=== PATIENT | female | born 1985 | race Caucasian/White ===

== ENCOUNTER 2018-08-07 10:42 | Day surgery (SDC) | payer OTHER ==
--- NOTE | 2018-08-02 13:41 | HP ---
Admitting History and Physical - Primary Care Physician PCP: Antonio Davis - Admission Chief Complaint: left breast cancer DCIS History of Present Illness: 33 year old premenapausal female with strong family H/O breast cancer Mammogram showed calcifications left outer aspect of breast birad 4.. US showed benign cystic changes bilaterally. Stereotactic core bx left breast showed 07/2018 DCIS ER/CT -.Breast MRI 07/2018 right breast negative. localized left breast cancer. History Source: Patient Limitations to Obtaining History: No Limitations - Past Medical History Additional Past Medical History: benign left breast FNA - Smoking History Smoking history: Never smoked Have you smoked in the past 12 months: No - Alcohol/Substance Use Hx Alcohol Use: Yes (social) Home Medications - Allergies Allergies/Adverse Reactions: Allergies Allergy/AdvReac Type Severity Reaction Status Date / Time minocycline Allergy Verified 07/30/18 11:51 Family Disease History - Family Disease History Family Disease History: CA: Grandparent (Mat GM bladder and lung ca alive 80's// mat GF prostate ca 50 mets and CRC70's ), Mother (bilateral breast ca 54 alive and her twin sister breast ca 53) Other Family History: mat aunt breast ca 53 mothers twin. mat [place] breast ca 55 Physical Examination Constitutional: Yes: Well Nourished Breast(s): Yes: Other (moderately ptotic C cup breasts no pslpsble masses or adenopathy in either breast post bx changes left breast) Problem List - Problems (1) Ductal carcinoma in situ (DCIS) of left breast Code(s): D05.12 - INTRADUCTAL CARCINOMA IN SITU OF LEFT BREAST Assessment/Plan Left breast wide excision mammogram localization
[2018-08-03 09:53] VITALS: BMI 25.2
[2018-08-07] MEDS ORDERED: BUPIVACAINE HCL/PF 2.5 MG/ML - 30 ML VIAL IJ ONE (12:40)
[2018-08-07] MEDS ORDERED: MIDAZOLAM HCL 2 MG/2 ML SINGLE DOSE VIAL ONE (13:13)
[2018-08-07] MEDS ORDERED: LIDOCAINE HCL/PF 2% SDV 5ML VIAL ONE (13:46)
[2018-08-07] MEDS ORDERED: DEXAMETHASONE SOD PHOSPHATE 4 MG/1 ML VIAL ONE (13:46)
[2018-08-07] MEDS ORDERED: ONDANSETRON 4 MG/2 ML VIAL ONE (13:46)
[2018-08-07] MEDS ORDERED: PROPOFOL 20 ML ONE (13:48)
[2018-08-07] MEDS ORDERED: GUM MASTIC/STORAX/MSAL/ALCOHOL 1 DRP DROPSBTL MC ONE (14:46)
[2018-08-07] MEDS ORDERED: KETOROLAC TROMETHAMINE 30 MG/1 ML VIAL IVPUSH PRN (15:02)
[2018-08-07] MEDS ORDERED: ONDANSETRON 4 MG/2 ML VIAL IVPUSH PRN ×2 (15:02→15:04)
[2018-08-07] MEDS ORDERED: PROMETHAZINE HCL 25 MG/1 ML VIAL IVPUSH PRN (15:04)
[2018-08-07] MEDS ORDERED: oxyCODONE HCL 5 MG TABLET PO PRN ×2 (15:04)
[2018-08-07] MEDS ORDERED: KETOROLAC TROMETHAMINE 30 MG/1 ML VIAL IVPUSH ONE (15:06)
[2018-08-07] MEDS ORDERED: DEXTROSE 5%-0.45% SALINE 1,000 ML IV SCH (15:15)
[2018-08-07] MEDS ORDERED: LACTATED RINGERS SOLUTION 1,000 ML IV SCH (15:15)
[2018-08-07 15:23] VITALS: TEMP 98.1
[2018-08-07] MEDS ORDERED: oxyCODONE HCL 5 MG TABLET ONE (16:01)
[2018-08-07 16:41] VITALS: BP 114/64; PULSE 76
--- NOTE | 2018-08-07 19:47 | OP ---
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 PROCEDURE: Left breast partial mastectomy with mammographic needle localization. ANESTHESIA: General laryngeal mask airway anesthesia. PRIMARY SURGEON: Millie Davis MD FORMING DEPARTMENT SUPERVISOR: MADHURI Das COMPLICATIONS: There were no complications. Briefly, the patient is a 33-year-old nulliparous white female with a family history with her mother, who had bilateral breast cancer at age 53 and a maternal aunt who had breast cancer at age 53. A maternal great aunt had breast cancer in her 50s and her maternal grandfather had colorectal and prostate cancer. The patient underwent a mammography on July 05, 2018, showing some pleomorphic calcifications in the left breast upper outer quadrant, and stereotactic biopsy performed on July 09, 2018, showing intermediate grade DCIS, which was ER/OR negative. Genetic testing was sent. She was advised on undergoing a left breast partial mastectomy with mammographic needle localization. MRI had showed localized disease. The patient was brought in for the procedure on August 07, 2018. She first underwent mammographic needle localization of the clip in the upper outer aspect of the left breast. She was then brought to the holding area. In the holding area, site verification was made and informed consent was obtained. She was brought in to the operating room and laid on the OR table in a supine position. Venodynes were placed on the lower extremities prior to induction. She did not receive antibiotics, given the small nature of the excision. She underwent general laryngeal mask airway anesthesia. The left breast was sterilely prepped and draped in the usual fashion with the wire prepped in the field. Once the patient was properly anesthetized, a curvilinear incision was made around the periareolar border of the left breast nipple-areolar complex. Dissection was undertaken around the needle localization and the breast tissue was completely removed from around the wire, with the wire intact in the middle of the specimen. The specimen was completely removed down to the pectoralis major muscle and was oriented with a long lateral, short superior suture. Specimen radiograph showed removal of the clip and calcifications in question. The specimen was sent to Pathology in formalin. Separate margins were then taken on the superior, inferior, medial, lateral, deep, and anterior margins, with suture marking the biopsy cavity site, and each of these specimens was sent separately as margins in formalin to Pathology. At this point, hemostasis was achieved and the wound was copiously irrigated. A 4 x 3 cm tissue transfer closure was then accomplished by undermining the breast tissue and reapproximating the breast tissue using interrupted 2-0 plain suture. The skin was closed using interrupted 3-0 deep dermal Vicryl suture and a running 4-0 subcuticular Biosyn suture. Mastisol, Steri-Strips applied over the wound, a compressive dressing placed over this. She was placed in a surgical bra postoperatively. Laryngeal mask airway tube was removed at the end of the case and she was brought to the post-anesthesia care unit in stable condition. The patient will be discharged home once discharge criteria are met. All sponge and needle counts were correct at the end of the case. Estimated blood loss was minimal. She is to follow up in the office in 1 week for formal wound pathology check. MILLIE DAVIS M.D. [id number]
--- NOTE | 2018-08-10 11:14 | PATH ---
Surgical Pathology Report Patient Name: JUAN HARPER [facility]. Rec. #: [id number] /Age/Gender: 1985 (Age: 33) / F Account: [id number] Location: [facility] AMBULATORY Taken: 08/07/2018 Received: 08/07/2018 Reported: 08/10/2018 Physicians: Antonio Davis M.D. Specimen(s) Received A: LEFT BREAST WIDE EXCISION LONG STITCH LATERAL SHORT SUPERIOR B: LEFT BREAST SUPERIOR MARGIN C: LEFT BREAST LATERAL MARGIN D: LEFT BREAST INFERIOR MARGIN E: LEFT BREAST MEDIAL MARGIN F: LEFT BREAST POSTERIOR MARGIN G: LEFT BREAST ANTERIOR MARGIN Clinical History DCIS Final Diagnosis A. LEFT BREAST, WIDE EXCISION: DUCTAL CARCINOMA IN SITU (DCIS), CRIBRIFORM AND SOLID TYPE, INTERMEDIATE TO HIGH NUCLEAR GRADE, WITH ASSOCIATED NECROSIS AND CALCIFICATIONS, PRESENT IN 14 OF 16 SLIDES. DCIS MEASURES 3.6 CM IN GREATEST DIMENSION. MARGINS ARE UNINVOLVED BY DCIS. DCIS IS AT <1 MM FROM THE CLOSEST MARGINS (MEDIAL AND POSTERIOR). SEE SPECIMEN B TO G FOR FINAL MARGINS. REMAINDER OF THE BREAST TISSUE SHOW PROLIFERATIVE FIBROCYSTIC CHANGES. PRIOR BIOPSY SITE CHANGES ARE PRESENT. PATHOLOGIC STAGE (PTNM): pTis pNx. SEE DCIS CASE SUMMARY BELOW. B. LEFT BREAST SUPERIOR MARGIN, EXCISION: BENIGN BREAST TISSUE. C. LEFT BREAST LATERAL MARGIN, EXCISION: BENIGN BREAST TISSUE. D. LEFT BREAST INFERIOR MARGIN, EXCISION: BENIGN BREAST TISSUE. E. LEFT BREAST MEDIAL MARGIN, EXCISION: BENIGN BREAST TISSUE. F. LEFT BREAST POSTERIOR MARGIN, EXCISION: BENIGN BREAST TISSUE. G. LEFT BREAST ANTERIOR MARGIN, EXCISION: BENIGN BREAST TISSUE. Comment: Immunohistochemical stains (on block A10 and A12) performed and interpreted at [facility] show the following results: smooth muscle myosin heavy chain and p63 highlight the myoepithelial cell layer in the DCIS. Comments DCIS of the Breast: Surgical Pathology Cancer Case Summary (Based on AJCC TNM 8 th edition) Procedure _x_ Excision (less than total mastectomy) Specimen Laterality _x_ Left Size (Extent) of DCIS Estimated size (extent) of DCIS (greatest dimension using gross and microscopic evaluation): at least (millimeters): 36 mm. The entire specimen was submitted by serial sequential sampling. DCIS is present in 9 sequential sections, each section estimated 4 mm in thickness) Number of blocks with DCIS: 14 Number of blocks examined: 16 Note: The size (extent) of DCIS is an estimation of the volume of breast tissue occupied by DCIS. Histologic Type _x_ Ductal carcinoma in situ Architectural Patterns _x_ Cribriform _x_ Solid Nuclear Grade _x_ Grade II (intermediate) and Grade III (high) Necrosis _x_ Present, central (expansive "comedo" necrosis) Margins _x_ Uninvolved by DCIS Distance from closest margin (millimeters): Cannot be determined. DCIS is at <1 mm from medial and posterior margins in the wide excision (specimen A). The additional margins are negative for DCIS (specimen E and F) Regional Lymph Nodes _x_ No lymph nodes submitted or found Pathologic Stage Classification (pTNM, AJCC 8th Edition) Primary Tumor (pT) _x_ pTis (DCIS): Ductal carcinoma in situ Microcalcifications _x_ Present in DCIS Biomarker Studies Results of ER and MI studies performed on this specimen (block# A10) at [facility] are as follows: ER (clone [id number] mouse monoclonal antibody by [employer]): 0% nuclear staining (negative). MI (clone16 mouse monoclonal antibody by [employer]): 0% nuclear staining (negative). Positive and negative controls (internal if applicable) show appropriate results. Formalin fixation and cold ischemic times are within current ASCO/CAP recommendations for ER, MI and Her2 testing. Electronically Signed Chilo Carroll M.D. Gross Description A. Received in formalin, labeled "left breast wide excision," is a 5.2 x 3.3 x 2.5 cm. padilla-yellow, irregular, portion of fibroadipose tissue with a needle localization wire present. There is a short suture marking the superior aspect and a long suture marking the lateral aspect, per the surgeon. There is no skin or nipple present. The specimen is inked as follows: superior and lateral blue; inferior green; medial yellow; anterior red; deep black. The specimen is serially sectioned from superior to inferior. Sectioning reveals abundant dense, white, focally firm fibrous tissue. No definitive mass is identified. The specimen is entirely and sequentially submitted in 16 cassettes with the superior margin in cassette 1 and the inferior margin in cassette 16. Time to formalin fixation: 8 minutes Total formalin fixation time: Approximately 28 hours. B. Received in formalin labeled "left breast superior margin," is a 2.4 x 2.0 x 0.7 cm portion of fibroadipose tissue with a suture marking the biopsy cavity side, per the surgeon. The new margin is inked blue and the specimen is serially sectioned. The specimen is entirely submitted in 3 cassettes. C. Received in formalin labeled "left breast lateral margin," is a 2.3 x 1.7 x 0.9 cm portion of fibroadipose tissue with a suture marking the biopsy cavity side, per the surgeon. The new margin is inked blue and the specimen is serially sectioned. The specimen is entirely submitted in 3 cassettes. D. The received in formalin labeled "left breast inferior margin," is a 2.7 x 1.8 x 1.0 cm portion of fibroadipose tissue with a suture marking the biopsy cavity side, per the surgeon. The new margin is inked blue and the specimen is serially sectioned. The specimen is entirely submitted in 3 cassettes. E. Received in formalin labeled "left breast medial margin," is a 3.0 x 1.8 x 0.9 cm portion of fibroadipose tissue with a suture marking the biopsy cavity side, per the surgeon. The new margin is inked blue and the specimen is serially sectioned. The specimen is entirely submitted in 3 cassettes. F. Received in formalin labeled "left breast posterior margin," is a 1.8 x 1.8 x 0.7 cm portion of fibroadipose tissue with a suture marking the biopsy cavity side, per the surgeon. The new margin is inked blue and the specimen is serially sectioned. The specimen is entirely submitted in 2 cassettes. G. Received in formalin labeled "left breast anterior margin," is a 1.5 x 0.8 x 0.4 cm portion of fibroadipose tissue with a suture marking the biopsy cavity side, per the surgeon. The new margin is inked blue and the specimen is serially sectioned. The specimen is entirely submitted in one cassette. DL08/08/2018 saudi08/08/2018
== END 2018-08-07 16:44 | disposition home or self-care (01) ==
LOC: FASU 10:42
PROVIDERS: ATTEND Surgery Surgical Oncology
PROC: 0JX60ZC Transfer Chest Subcutaneous Tissue and Fascia with Skin, Subcutaneous Tissue and Fascia, Open Approach (ICD-10-PCS; 2018-08-07)
PROC: 0HBU0ZZ Excision of Left Breast, Open Approach (ICD-10-PCS; principal; 2018-08-07 13:00)
DX: D05.12 Intraductal carcinoma in situ of left breast (principal); Z80.3 Family history of malignant neoplasm of breast
CPT/HCPCS: 19281; 84703; 88307-TC; 88341-TC; 88342-TC; 94760

== ENCOUNTER 2018-09-11 13:03 | Day surgery (SDC) | payer OTHER ==
[2018-09-06 12:05] VITALS: BMI 25.2
--- NOTE | 2018-09-10 09:26 | HP ---
Admitting History and Physical - Primary Care Physician PCP: Antonio Davis - Admission Chief Complaint: S/P left breast wide excision with left breast hematoma History of Present Illness: Patient is a 33 yo female S/P left breast WE with NL sec to DCIS on 08/07/2018. Patient has been healing well but did develop a hematoma with tenderness. Attempt was made to aspirate the hematoma in the office without resolution. Patient is now presenting for evacuation of hematoma. History Source: Patient Limitations to Obtaining History: No Limitations - Past Medical History ...LMP: 07/22/18 Heme/Onc: Yes: Cancer (Left breast DCIS) - Past Surgical History Additional Past Surgical History: Left breast wide excision with NL sec to DCIS 08/07/2017 - Smoking History Smoking history: Never smoked Have you smoked in the past 12 months: No - Alcohol/Substance Use Hx Alcohol Use: Yes (SOCIAL) Home Medications - Allergies Allergies/Adverse Reactions: Allergies Allergy/AdvReac Type Severity Reaction Status Date / Time minocycline Allergy Severe Hives Verified 08/03/18 09:40 - Home Medications Home Medications: Ambulatory Orders Acetaminophen 500 mg PO ASDIR 09/06/18 Family Disease History - Family Disease History Family Disease History: Diabetes: Grandparent (Mat GM bladder and lung ca alive 80's//mat GF prostate ca 50 mets and CRC70's ), CA: Grandparent, Mother (bilateral breast ca 54 alive and her twin sister breast ca 53) Other Family History: maternal great aunt with breast cancer at 55 Review of Systems - Review of Systems Constitutional: reports: No Symptoms Cardiovascular: reports: No Symptoms Respiratory: reports: No Symptoms Physical Examination Constitutional: Yes: Well Nourished Breast(s): Yes: Other (Left breast well healed incision without erythema or discharge. Positive hematoma that is tender to palpation.) Problem List - Problems (1) Ductal carcinoma in situ (DCIS) of left breast Code(s): D05.12 - INTRADUCTAL CARCINOMA IN SITU OF LEFT BREAST Assessment/Plan Plan: Evacuation of left breast hematoma
[2018-09-11] MEDS ORDERED: BUPIVACAINE HCL/PF 2.5 MG/ML - 30 ML VIAL IJ ONE (15:08)
[2018-09-11] MEDS ORDERED: ONDANSETRON 4 MG/2 ML VIAL ONE ×2 (15:15→15:52)
[2018-09-11] MEDS ORDERED: DEXAMETHASONE SOD PHOSPHATE 4 MG/1 ML VIAL ONE ×2 (15:15→15:52)
[2018-09-11] MEDS ORDERED: MIDAZOLAM HCL 2 MG/2 ML SINGLE DOSE VIAL ONE (15:16)
[2018-09-11] MEDS ORDERED: PROPOFOL 20 ML ONE (15:22)
[2018-09-11] MEDS ORDERED: ceFAZolin SODIUM 1 GM VIAL ONE ×2 (15:27)
[2018-09-11] MEDS ORDERED: ONDANSETRON 4 MG/2 ML VIAL IVPUSH PRN (16:07)
[2018-09-11] MEDS ORDERED: DEXTROSE 5%-0.45% SALINE 1,000 ML IV SCH (16:15)
[2018-09-11] MEDS ORDERED: oxyCODONE HCL 5 MG TABLET PO PRN ×2 (16:26)
[2018-09-11] MEDS ORDERED: LACTATED RINGERS SOLUTION 1,000 ML IV SCH (16:30)
[2018-09-11 17:26] VITALS: PULSE 69; TEMP 98
[2018-09-11 17:34] VITALS: BP 102/65
--- NOTE | 2018-09-11 20:39 | OP ---
DATE OF OPERATION: 09/11/2018 PREOPERATIVE DIAGNOSIS: Left breast ductal carcinoma in situ with hematoma. POSTOPERATIVE DIAGNOSIS: Left breast ductal carcinoma in situ with hematoma. PROCEDURE: Evacuation of hematoma, left breast. ANESTHESIA: General laryngeal mask airway anesthesia. PRIMARY SURGEON: Millie Davis MD SENIOR OFFICE SUPPORT ASSISTANT SOSA: MADHURI Charles COMPLICATIONS: There were no complications. Briefly, the patient is a 33-year-old, nulliparous, premenopausal female, of [place] descent, with a strong family history, with her mother had bilateral breast cancer at age 53, as well as her maternal aunt, who also had breast cancer at age 53. She has a maternal great aunt who had breast cancer in her early 50s and her maternal grandfather had colorectal cancer. Her maternal grandmother had bladder cancer. The patient had a mammography in June 2018, showing calcifications towards the upper outer aspect of the left breast, and stereotactic biopsy showed intermediate grade DCIS, which was ER/[place] negative. MRI showed localized disease and she underwent a partial mastectomy on July 31, 2018, just showing intermediate to high-grade DCIS, measuring about 3.6 cm in maximum dimension, but all margins are free. Genetic testing was negative. She was doing well but did develop a consolidated hematoma, which could not be aspirated on followup, and she was having tenderness, so it was decided to bring her back to the OR for evacuation of hematoma. She was brought in for the procedure on September 11, 2018. In the holding area, site verification was made and informed consent was obtained. She was brought in to the operating room and laid on the OR table in a supine position. She was given general laryngeal mask airway anesthesia. The left breast was sterilely prepped and draped in the usual fashion. Once she was properly anesthetized, she was given 1 g of Ancef prior to incision. The periareolar incision was reopened and the hematoma cavity was entered and completely evacuated using the suction device. Hemostasis was achieved using electrocautery to cauterize all bleeding edges. There was no significant bleeding source. The wound was copiously irrigated with warm sterile saline. The breast parenchyma was then reapproximated using 2-0 plain suture. The skin was closed using interrupted 3-0 deep dermal Vicryl suture and a running 4-0 subcuticular Biosyn suture. Mastisol and Steri-Strips were applied over the wound and the patient was placed in a compressive surgical bra postoperatively with a sterile dressing. The patient tolerated the procedure well. The laryngeal mask airway tube was removed at the end of the case. She was brought to the post-anesthesia care unit in stable condition and will be discharged home the same day once discharge criteria are met. She is to follow up in the office in 1 to 2 weeks for postoperative followup. The patient understands the need for external beam radiation after she heals. All sponge and needle counts were correct at the end of the case. Estimated blood loss was minimal. MILLIE DAVIS M.D. [id number]
== END 2018-09-11 17:20 | disposition home or self-care (01) ==
LOC: FASU 13:03
PROVIDERS: ATTEND Surgery Surgical Oncology
PROC: 0J960ZZ Drainage of Chest Subcutaneous Tissue and Fascia, Open Approach (ICD-10-PCS; principal; 2018-09-11 15:32)
DX: L76.32 Postprocedural hematoma of skin and subcutaneous tissue following other procedure (principal); Y83.8 Other surgical procedures as the cause of abnormal reaction of the patient, or of later complication, without mention of misadventure at the time of the procedure; Y82.8 Other medical devices associated with adverse incidents; D05.12 Intraductal carcinoma in situ of left breast
CPT/HCPCS: 84703; 94760